=== PATIENT | female | born 1985 | race Two or more races ===

== ENCOUNTER 2017-10-26 14:41 | Emergency (ER) | payer SELFPAY ==
[~2017-10-26] VITALS: Ht 165.1 cm; Wt 48.3 kg
[2017-10-26 14:43] VITALS: BP 131/77
[2017-10-26 16:18] LABS: HCG UR LOT HCG706132
[2017-10-26 16:23] LABS: HCG UR OBC PASS
[2017-10-26] MEDS ORDERED: IBUPROFEN 200 MG TABLET ONE (16:41)
[2017-10-26] MEDS ORDERED: ACETAMINOPHEN 325 MG TABLET PO ONE (17:00)
== END 2017-10-26 17:31 | disposition home or self-care (01) ==
LOC: ED 17:25
DX: S16.1XXA Strain of muscle, fascia and tendon at neck level, initial encounter (principal); S60.022A Contusion of left index finger without damage to nail, initial encounter; N30.00 Acute cystitis without hematuria; W10.9XXA Fall (on) (from) unspecified stairs and steps, initial encounter; Y93.89 Activity, other specified; Y99.8 Other external cause status; Y92.009 Unspecified place in unspecified non-institutional (private) residence as the place of occurrence of the external cause; Z90.710 Acquired absence of both cervix and uterus
CPT/HCPCS: 72050; 81003; 81025; 99285